=== PATIENT | female | born 1965 | race Caucasian/White ===

== ENCOUNTER 2017-02-06 08:55 | Outpatient (CLI) | payer OTHER ==
--- NOTE | 2017-02-06 10:09 | RAD ---
LUMBAR SPINE SERIES THREE VIEWS WITH FLEXION AND EXTENSION: History: Low back pain with right leg numbness after bending over two weeks ago. History of surgery in 1989. FINDINGS: Bones appear slightly demineralized. The lumbar vertebral bodies are normal in height. Monica ty pe rods are seen inferior portion of the randy is at the L3-4 level. Degenerative facet changes are pr esent. There is some minimal disc narrowing at L5-S1. I do not seen any abnormal motion in flexion o r extension and, in fact, limited motion is seen. Vascular calcifications are seen. IMPRESSION: Post-operative changes and arthritic changes of the spine. POS: OFF
== END 2017-02-06 08:56 | disposition home or self-care (01) ==
LOC: TBSIIMAG 08:55
PROVIDERS: ATTEND Neurological Surgery
DX: M54.5 Low back pain (principal); Z98.1 Arthrodesis status
CPT/HCPCS: 72100

== ENCOUNTER 2017-10-18 09:58 | Outpatient (CLI) | payer OTHER | END 2017-10-18 09:59 | disposition home or self-care (01) | LOC: BICMAMMO 09:58 | PROVIDERS: ATTEND Family Medicine | DX: Z78.0 Asymptomatic menopausal state (principal); M85.852 Other specified disorders of bone density and structure, left thigh; M85.851 Other specified disorders of bone density and structure, right thigh | CPT/HCPCS: 77080 ==